=== PATIENT | female | born 1950 | race Two or more races ===

== ENCOUNTER 2016-10-09 14:05 | Outpatient (CLI) | payer BC, OTHER ==
[2016-10-09 14:51] LABS: BASOPHILS % (AUTO) 0.4 % (0.0-2.0); DIFF TOTAL % 100 %; EOSINOPHILS # (AUTO) 0.1 /CMM (0.0-0.7); EOSINOPHILS % (AUTO) 1.4 % (0.0-6.0); HEMATOCRIT 40 % (33-45); HEMOGLOBIN 13.2 g/dL (11.5-14.8); LYMPHOCYTES % (AUTO) 36.9 % (20.0-44.0); MEAN CORPUSCULAR HEMOGLOBIN 28 PG (26.0-33.0); MEAN CORPUSCULAR HGB CONC 33 g/dl (31.0-36.0); MEAN CORPUSCULAR VOLUME 85 fL (82-100); MONOCYTES # (AUTO) 0.4 /CMM (0.1-1.30); MONOCYTES % (AUTO) 5.2 % (2.0-12.0); NEUTROPHILS # (AUTO) 4.5 /CMM (1.8-8.9); NEUTROPHILS % (AUTO) 56.1 % (43.0-81.0); PLATELET COUNT (AUTO) 246 /CMM (150-450); RED BLOOD CELL COUNT(AUTO) 4.74 MIL/uL (4.0-5.2)
[2016-10-09 15:01] LABS: ALBUMIN 3.8 g/dL (3.4-5.0); BILIRUBIN,TOTAL 0.3 mg/dL (0.2-1.0); CREATININE 0.7 mg/dL (0.6-1.3); POTASSIUM 4.2 mmol/L (3.5-5.1); TOTAL PROTEIN, SERUM 7.5 g/dL (6.4-8.2)
[2016-10-09 15:40] LABS: KETONES,URINE NEGATIVE (NEGATIVE); LEUKOCYTE ESTERASE ,URINE 1+ (NEGATIVE); PH,URINE 7.5 (5.0-8.0)
[2016-10-09 16:00] LABS: ADD UA MICROSCOPIC YES
[2016-10-09 16:01] LABS: ADD URINE CULTURE YES
== END 2016-10-09 23:59 | disposition home or self-care (01) ==
LOC: LAB 14:05
PROVIDERS: ATTEND Family Medicine
DX: N39.0 Urinary tract infection, site not specified (principal)
CPT/HCPCS: 36415; 80053-TC; 81000-TC; 82150-TC; 83690-TC; 85025-TC; 87086-TC

== ENCOUNTER 2016-10-23 14:20 | Outpatient (CLI) | payer BC, OTHER ==
[2016-10-23 14:54] LABS: CALCIUM, SERUM 9.1 mg/dL (8.5-10.1); CREATININE 0.7 mg/dL (0.6-1.3); POTASSIUM 4.3 mmol/L (3.5-5.1)
== END 2016-10-23 23:59 | disposition home or self-care (01) ==
LOC: LAB 14:20
PROVIDERS: ATTEND Family Medicine
DX: R31.21 Asymptomatic microscopic hematuria (principal)
CPT/HCPCS: 36415; 80048-TC

== ENCOUNTER → 2016-10-25 | Outpatient (CLI) | payer BC, OTHER ==
[~2016-10-25] MED LIST: CT SWABBABLE VALVE TRANS SET 1 EA INFUS.SET MC ONE; IOHEXOL-300 100 ML VIAL IV ONE; IV NS 0.9% 250 ML IV ONE
[2016-10-25 11:31] LABS: CALCIUM, SERUM 8.9 mg/dL (8.5-10.1); CREATININE 0.7 mg/dL (0.6-1.3); POTASSIUM 4.5 mmol/L (3.5-5.1)
== END ==
LOC: CT 09:46
PROVIDERS: ATTEND Family Medicine
DX: R31.21 Asymptomatic microscopic hematuria (principal); K57.90 Diverticulosis of intestine, part unspecified, without perforation or abscess without bleeding
CPT/HCPCS: 36415; 74178; 80048; J7050; Q9967

== ENCOUNTER 2016-11-07 10:04 | Outpatient (CLI) | payer BC, OTHER ==
[2016-11-07 10:29] LABS: BASOPHILS # (AUTO) 0.1 /CMM (0.0-0.2); BASOPHILS % (AUTO) 0.3 % (0.0-2.0); HEMATOCRIT 39 % (33-45); HEMOGLOBIN 13.2 g/dL (11.5-14.8); LYMPHOCYTES # (AUTO) 1.1 /CMM (0.8-4.8); LYMPHOCYTES % (AUTO) 7.5 % (20.0-44.0); MEAN CORPUSCULAR HEMOGLOBIN 28 PG (26.0-33.0); MEAN CORPUSCULAR HGB CONC 34 g/dl (31.0-36.0); MEAN CORPUSCULAR VOLUME 84 fL (82-100); MONOCYTES # (AUTO) 0.5 /CMM (0.1-1.30); MONOCYTES % (AUTO) 3.3 % (2.0-12.0); NEUTROPHILS # (AUTO) 13.5 /CMM (1.8-8.9); NEUTROPHILS % (AUTO) 88.9 % (43.0-81.0); PLATELET COUNT (AUTO) 267 /CMM (150-450); RED BLOOD CELL COUNT(AUTO) 4.67 MIL/uL (4.0-5.2); WHITE BLOOD COUNT (AUTO) 15.2 K/uL (4.3-11.0)
[2016-11-07 10:36] LABS: APPEARANCE,URINE CLOUDY (CLEAR); BILIRUBIN,URINE NEGATIVE (NEGATIVE); BLOOD, URINE 3+ Ery/uL (NEGATIVE); COLOR,URINE YELLOW (YELLOW); KETONES,URINE NEGATIVE (NEGATIVE); LEUKOCYTE ESTERASE ,URINE 1+ (NEGATIVE); NITRITE, URINE NEGATIVE (NEGATIVE); PROTEIN,URINE NEGATIVE (NEGATIVE); UGLUCOSE NEGATIVE (NEGATIVE); UROBILINOGEN,URINE 0.2 EU/dL (0.2)
[2016-11-07 10:40] LABS: ADD URINE CULTURE YES; BACTERIA,URINE Few /HPF (None Seen); RBC,URINE 21-50 /HPF (0-2); SQUAMOUS EPITHELIAL CELL,UR Few /HPF (None Seen)
[2016-11-07 10:53] LABS: ALBUMIN 4.2 g/dL (3.4-5.0); BILIRUBIN,TOTAL 0.4 mg/dL (0.2-1.0); CALCIUM, SERUM 9.2 mg/dL (8.5-10.1); CREATININE 0.7 mg/dL (0.6-1.3); POTASSIUM 3.9 mmol/L (3.5-5.1)
[2016-11-07] MEDS ORDERED: IOHEXOL-300 100 ML VIAL IV ONE (11:05)
[2016-11-07] MEDS ORDERED: CT SWABBABLE VALVE TRANS SET 1 EA INFUS.SET MC ONE (11:05)
[2016-11-07] MEDS ORDERED: IV NS 0.9% 250 ML IV ONE (11:05)
[2016-11-07] MEDS ORDERED: METO-295 PO (12:17)
[2016-11-07] MEDS ORDERED: PANT40TA4 PO (12:17)
[2016-11-07] MEDS ORDERED: FENTANYL PF 100MCG/2ML AMPUL ONE (13:02)
[2016-11-07] MEDS ORDERED: MIDAZOLAM HCL 2 MG/2ML VIAL ONE (13:03)
[2016-11-07] MEDS ORDERED: ROCURONIUM BROMIDE 50 MG/5 ML ONE (13:03)
[2016-11-07] MEDS ORDERED: BUPIVACAINE 0.5 % PF 150 MG/30 ML VIAL ONE (14:57)
[2016-11-07] MEDS ORDERED: ANESTHESIA TRAY IN PYXIS 1 EA TRAY MC ONE (14:57)
[2016-11-08] MEDS ORDERED: CEPH-570 PO (12:44)
== END 2016-11-07 23:59 | disposition home or self-care (01) ==
LOC: LAB 10:04
PROVIDERS: ATTEND Family Medicine
DX: K35.80 Unspecified acute appendicitis (principal); K57.90 Diverticulosis of intestine, part unspecified, without perforation or abscess without bleeding; I70.0 Atherosclerosis of aorta
CPT/HCPCS: 36415; 74160; 80053; 81001; 82150; 83690; 85025; 87086; 88304; 88305; J1100; J1885; J2250; J2405; J2704; J2710; J3010; J3490 ×2; J7050; Q9967; 81000-TC

== ENCOUNTER 2016-11-07 12:05 | Inpatient (IN) | payer BC, OTHER ==
[~2016-11-07] VITALS: Ht 368.3 cm; Wt 68.5 kg
--- NOTE | 2016-11-07 12:10 | NUR ---
CALLED NURSING SUP. FOR [facility] BED
[2016-11-07] MEDS ORDERED: PANT40TA4 PO (12:17)
[2016-11-07] MEDS ORDERED: METO-295 PO (12:17)
--- NOTE | 2016-11-07 12:28 | NUR ---
CALLED (SURGEON [employer] OFFICER), TRANSFERRED CALL TO
[2016-11-07] MEDS ORDERED: ONDANSETRON HCL/PF 4 MG/2 ML VIAL IV ONE (12:30)
[2016-11-07] MEDS ORDERED: MORPHINE SULFATE INJ 2 MG/ML DISP.SYRIN IV ONE (12:30)
[2016-11-07] MEDS ORDERED: IV NS 0.9% 1,000 ML BAG IV ONE (12:30)
[2016-11-07] MEDS ORDERED: CEFTRIAXONE 1GM BAG (ER ONLY) 1 GM/50 ML PIGGYBACK IV ONE (12:30)
[2016-11-07] MEDS ORDERED: FLAGYL/NS RTU 500 MG/100 ML PIGGYBACK IV ONE (12:30)
[2016-11-07] MEDS ORDERED: MORPHINE SULFATE INJ 4 MG/ML DISP.SYRIN ONE (12:40)
[2016-11-07] MEDS ORDERED: MORPHINE SULFATE INJ 2 MG/ML DISP.SYRIN ONE (12:40)
[2016-11-07] MEDS ORDERED: METRONIDAZOLE 500MG/ NS 100ML 100 ML IV ONE (12:41)
[2016-11-07] MEDS ORDERED: IV NS 0.9% 1,000 ML ONE (12:41)
[2016-11-07] MEDS ORDERED: CEFTRIAXONE 1GM BAG (ER ONLY) 50 ML IV ONE (12:41)
[2016-11-07] MEDS ORDERED: ONDANSETRON HCL/PF 4 MG/2 ML VIAL ONE (12:41)
[2016-11-07] MEDS ORDERED: IV SET PRIMARY PUMP SET 1 EA INFUS.SET MC ONE ×2 (12:41→17:17)
--- NOTE | 2016-11-07 13:14 | NUR ---
TRANSFERED TO OR
[2016-11-07] MEDS ORDERED: IV D5/0.45 NACL 1,000 ML IV PRN (14:03)
[2016-11-07 14:23] LABS: AMYLASE 84 U/L (25-115); LIPASE 167 U/L (73-393)
[2016-11-07] MEDS ORDERED: MAG HYDROX/AL HYDROX/SIMETH 30 ML UDC PO PRN (14:30)
[2016-11-07] MEDS ORDERED: ACETAMINOPHEN 325 MG TABLET PO PRN (14:30)
[2016-11-07] MEDS ORDERED: Z GUARD REMEDY 2 OZ OINT TP PRN (14:30)
[2016-11-07] MEDS ORDERED: ZOLPIDEM TARTRATE 5 MG TABLET PO PRN (14:30)
[2016-11-07] MEDS ORDERED: ONDANSETRON HCL/PF 4 MG/2 ML VIAL IVP PRN (14:30)
[2016-11-07] MEDS ORDERED: MORPHINE SULFATE INJ 2 MG/ML DISP.SYRIN IV PRN ×2 (14:30→15:30)
[2016-11-07] MEDS ORDERED: MAGNESIUM HYDROXIDE 30 ML UDC PO PRN (14:30)
[2016-11-07] MEDS ORDERED: IV LR 1000 ML 1,000 ML ONE (14:46)
--- NOTE | 2016-11-07 15:30 | NUR ---
Med Surg Admitting note Received patient in room 111-2 via gurney from OR. Family at bed side. patient A+Ox3, drowsy after anesthesia, verbalizes needs, vital signs stable. Code status not ordered, patient and family requesting information. notified MD and social service agency director. breathing even and unlabored with NC 2l O2, to titrate down post-op. patient denies nausea, denies pain. noted incision site @ abdomen, photo in chart. BL AC 20g IV patent. receiving LR @ 100ml/hr. progressed to CLD. no edema noted. lung sounds clear. bowel sounds diminished but present. last BM this morning. denies discomfort or hesitancy with urination. discussed plan of care. call light in reach.
[2016-11-07 16:17] VITALS: BP 124/76
[2016-11-07] MEDS: IV LR 1000 ML 1,000 ML IV PRN (17:31)
--- NOTE | 2016-11-07 19:38 | NUR ---
closing notes left patient in stable condition. drowsy but easily arouses. VSS. no gas passed. bowel sounds hypoactive. no complaints of pain. call light in reach. family at bed side.
[2016-11-07 20:00] VITALS: BP 114/63
--- NOTE | 2016-11-07 20:00 | NUR ---
received pt from day shift, alert, follows commands, RA, sat well, BRP, no BM, passing gas, surgical incision observed, no bleeding, no s/s of infection noted, v/s stable, pt c/o pain, asked only for Tylenol, pt turns and repositions by herself.
[2016-11-08 04:00] VITALS: BP 97/49
--- NOTE | 2016-11-08 04:25 | NUR ---
pt is resting in the bed, v/s stable, no pain, no bleeding from surgical site noted, pt cleaned and changed.
[2016-11-08] MEDS: IV LR 1000 ML 1,000 ML IV PRN (04:33)
[2016-11-08 07:20] LABS: BASOPHILS % (AUTO) 0.2 % (0.0-2.0); HEMATOCRIT 32 % (33-45); HEMOGLOBIN 10.8 g/dL (11.5-14.8); LYMPHOCYTES # (AUTO) 1.7 /CMM (0.8-4.8); MEAN CORPUSCULAR HEMOGLOBIN 29 PG (26.0-33.0); MEAN CORPUSCULAR HGB CONC 34 g/dl (31.0-36.0); MEAN CORPUSCULAR VOLUME 86 fL (82-100); MONOCYTES # (AUTO) 0.7 /CMM (0.1-1.30); MONOCYTES % (AUTO) 5.3 % (2.0-12.0); NEUTROPHILS # (AUTO) 10.5 /CMM (1.8-8.9); NEUTROPHILS % (AUTO) 81.5 % (43.0-81.0); PLATELET COUNT (AUTO) 211 /CMM (150-450); RDW COEFFICIENT OF VARIATION 14.3 (11.5-15.0); RED BLOOD CELL COUNT(AUTO) 3.76 MIL/uL (4.0-5.2); WHITE BLOOD COUNT (AUTO) 12.9 K/uL (4.3-11.0)
[2016-11-08 07:28] LABS: INR 1.02 (0.87-1.13); PROTHROMBIN TIME 10.9 SECS (9.5-12.7)
[2016-11-08] MEDS ORDERED: PANTOPRAZOLE 40 MG TABLET.DR PO SCH (07:30)
--- NOTE | 2016-11-08 07:30 | NUR ---
RN INITIAL NOTES pt aox4, on room air, no sob, clear lungs, denies pain, iv fluids running, on clear liquid diet, on bed rest with bedside commode, vs stable, skin intact, small incisions on abdomen cleand ,dry, color wnl, abdomen soft, bowel sound present, cap refill <3 sec, pulses present, labs wnl, wbc 12.9, no fever, teaching done to pt, verbalized understanding, pt able to move in bed and fluid intake independently. kept clean and dry, safety measures implemented, call light within reach.
[2016-11-08 07:43] LABS: ALBUMIN 2.9 g/dL (3.4-5.0); BILIRUBIN,TOTAL 0.3 mg/dL (0.2-1.0); CALCIUM, SERUM 7.8 mg/dL (8.5-10.1); CREATININE 0.7 mg/dL (0.6-1.3); MAGNESIUM 1.7 mg/dL (1.8-2.4); PHOSPHORUS 3.2 mg/dL (2.5-4.9); POTASSIUM 3.7 mmol/L (3.5-5.1); TOTAL PROTEIN, SERUM 6.2 g/dL (6.4-8.2)
[2016-11-08 07:51] LABS: THYROID STIMULATING HORMONE 0.273 uIU/mL (0.358-3.74)
[2016-11-08 08:00] VITALS: BP 96/66
[2016-11-08] MEDS: HYDROCODONE/APAP 5/325MG 1 EACH TABLET PO PRN ×2 (08:34→14:05)
[2016-11-08 10:10] LABS: APPEARANCE,URINE CLEAR (CLEAR); BILIRUBIN,URINE NEGATIVE (NEGATIVE); BLOOD, URINE TRACE-INTA Ery/uL (NEGATIVE); COLOR,URINE YELLOW (YELLOW); KETONES,URINE NEGATIVE (NEGATIVE); LEUKOCYTE ESTERASE ,URINE TRACE (NEGATIVE); NITRITE, URINE NEGATIVE (NEGATIVE); PROTEIN,URINE NEGATIVE (NEGATIVE); UGLUCOSE NEGATIVE (NEGATIVE); UROBILINOGEN,URINE 0.2 EU/dL (0.2)
[2016-11-08 10:30] LABS: ADD URINE CULTURE NO; BACTERIA,URINE Few /HPF (None Seen)
[2016-11-08] MEDS ORDERED: SECONDARY IV SET 1 EA INFUS.SET MC ONE (12:22)
[2016-11-08] MEDS: Magnesium 1GM/D5W 100ML PREMIX 100 ML IV SCH ×2 (12:31→14:04)
[2016-11-08] MEDS ORDERED: CEPH-570 PO (12:44)
[2016-11-08] MEDS ORDERED: PNEUMOCOCCAL 23-VAL P-SAC VAC 0.5 ML VIAL SQ ONE (15:30)
--- NOTE | 2016-11-08 16:05 | NUR ---
RN NOTE PT DISCHARGED HOME WITH AND SON VIA OWN TRANSPORTATION IN STABLE CONDITION, VS STABLE, DENIES PAIN, PT AMBULATES, DISCHARGE INSTRUCTIONS PROVIDED, EXIT CARE DONE, PNEUMONIA VACCINE ADMINISTERED PRIOR DISCHARGE, ID BAND REMOVED, IV LINES REMOVED. BELONGINGS LIST SIGNED, BELONGINGS GIVEN TO PT. WALL COVERING INSTALLER HELPED WITH WHEELCHAIR TRANSFER TO THE CAR.
== END 2016-11-08 16:20 | disposition home or self-care (01) | DRG 343 ==
LOC: ER 12:06 → MEDSG1 13:04
PROVIDERS: ADMIT Internal Medicine; ATTEND Internal Medicine
PROC: 0DTJ4ZZ Resection of Appendix, Percutaneous Endoscopic Approach (ICD-10-PCS; principal; 2016-11-07 13:00)
DX: K35.80 Unspecified acute appendicitis (principal); K29.70 Gastritis, unspecified, without bleeding; E78.5 Hyperlipidemia, unspecified; E55.9 Vitamin D deficiency, unspecified; E86.0 Dehydration; K21.9 Gastro-esophageal reflux disease without esophagitis; K57.90 Diverticulosis of intestine, part unspecified, without perforation or abscess without bleeding
CPT/HCPCS: 36415; 71010-TC; 80053-TC; 80061-TC; 81000-TC; 82150-TC; 82746; 83540-TC; 83605-TC; 83690-TC; 83735-TC; 84100-TC; 84443-TC; 85025-TC; 85730-TC; 86850-TC; 87040-TC; 87081-TC; 87086-TC; 90732; 93307-TC; A4606; J0696; J2270; J2405; J3475; J3490; J7030; J7120; Z7610

== ENCOUNTER 2016-12-20 11:19 | Outpatient (CLI) | payer BC, OTHER ==
[~2016-12-20 11:19] MED LIST changes: +CEPH-570 PO; -CT SWABBABLE VALVE TRANS SET 1 EA INFUS.SET MC ONE; -IOHEXOL-300 100 ML VIAL IV ONE; -IV NS 0.9% 250 ML IV ONE; +METO-295 PO; +PANT40TA4 PO
[2016-12-20 12:15] LABS: ALBUMIN 3.8 g/dL (3.4-5.0); BILIRUBIN,TOTAL 0.3 mg/dL (0.2-1.0); CALCIUM, SERUM 8.9 mg/dL (8.5-10.1); CREATININE 0.7 mg/dL (0.6-1.3); TOTAL PROTEIN, SERUM 7.7 g/dL (6.4-8.2)
[2016-12-20 12:30] LABS: BASOPHILS % (AUTO) 0.3 % (0.0-2.0); EOSINOPHILS # (AUTO) 0.1 /CMM (0.0-0.7); EOSINOPHILS % (AUTO) 1.4 % (0.0-6.0); HEMATOCRIT 38 % (33-45); HEMOGLOBIN 12.9 g/dL (11.5-14.8); LYMPHOCYTES # (AUTO) 2.3 /CMM (0.8-4.8); LYMPHOCYTES % (AUTO) 36.3 % (20.0-44.0); MEAN CORPUSCULAR HEMOGLOBIN 29 PG (26.0-33.0); MEAN CORPUSCULAR HGB CONC 34 g/dl (31.0-36.0); MEAN CORPUSCULAR VOLUME 85 fL (82-100); MONOCYTES # (AUTO) 0.4 /CMM (0.1-1.30); MONOCYTES % (AUTO) 6.6 % (2.0-12.0); NEUTROPHILS # (AUTO) 3.5 /CMM (1.8-8.9); NEUTROPHILS % (AUTO) 55.4 % (43.0-81.0); PLATELET COUNT (AUTO) 250 /CMM (150-450); RDW COEFFICIENT OF VARIATION 13.5 (11.5-15.0); RED BLOOD CELL COUNT(AUTO) 4.52 MIL/uL (4.0-5.2); WHITE BLOOD COUNT (AUTO) 6.3 K/uL (4.3-11.0)
[2016-12-20 13:01] LABS: INR 0.97 (0.87-1.13); PROTHROMBIN TIME 10.4 SECS (9.5-12.7)
== END 2016-12-20 23:59 | disposition home or self-care (01) ==
LOC: LAB 11:19
PROVIDERS: ATTEND Family Medicine
DX: Z01.818 Encounter for other preprocedural examination (principal); N39.0 Urinary tract infection, site not specified
CPT/HCPCS: 36415; 80053-TC; 85025-TC; 85730-TC; 87086-TC

== ENCOUNTER 2017-01-14 12:04 | Outpatient (CLI) | payer BC | END 2017-01-14 23:59 | disposition home or self-care (01) | LOC: LAB 12:04 | PROVIDERS: ATTEND Family Medicine | DX: Z11.59 Encounter for screening for other viral diseases (principal); Z00.01 Encounter for general adult medical examination with abnormal findings; N39.0 Urinary tract infection, site not specified; E55.9 Vitamin D deficiency, unspecified | CPT/HCPCS: 87086-TC ==

== ENCOUNTER 2017-01-17 10:43 | Outpatient (CLI) | payer BC ==
[2017-01-17 11:38] LABS: CHOLESTEROL 236 mg/dL (<200); HDL CHOLESTEROL 42 mg/dL (40-60); LDL 111 mg/dL (0-99); TRIGLYCERIDES 248 mg/dL (30-150)
== END 2017-01-17 23:59 | disposition home or self-care (01) ==
LOC: CARD 10:43
PROVIDERS: ATTEND Family Medicine
DX: I34.0 Nonrheumatic mitral (valve) insufficiency (principal); E55.9 Vitamin D deficiency, unspecified; E78.5 Hyperlipidemia, unspecified; E78.00 Pure hypercholesterolemia, unspecified; E03.9 Hypothyroidism, unspecified
CPT/HCPCS: 36415; 80061-TC; 82306; 86803; 87086-TC; 93307-TC

== ENCOUNTER 2017-01-22 09:02 | Outpatient (CLI) | payer BC ==
[2017-01-22 09:51] LABS: INR 0.95 (0.87-1.13); PROTHROMBIN TIME 10.1 SECS (9.5-12.7)
== END 2017-01-22 23:59 | disposition home or self-care (01) ==
LOC: LAB 09:02
PROVIDERS: ATTEND Family Medicine
DX: Z01.818 Encounter for other preprocedural examination (principal); R31.21 Asymptomatic microscopic hematuria
CPT/HCPCS: 36415; 71020-TC; 76770-TC; 85730-TC; 87086-TC

== ENCOUNTER 2017-02-19 15:11 | Outpatient (CLI) | payer BC ==
[2017-02-19 16:23] LABS: CREATININE 0.6 mg/dL (0.6-1.3)
== END 2017-02-19 23:59 | disposition home or self-care (01) ==
LOC: LAB 15:11
PROVIDERS: ATTEND Family Medicine
DX: N20.0 Calculus of kidney (principal)
CPT/HCPCS: 36415; 82565-TC; 84520-TC

== ENCOUNTER 2017-02-20 08:31 | Outpatient (CLI) | payer BC ==
[2017-02-20] MEDS ORDERED: IOHEXOL-300 100 ML VIAL IV ONE (08:53)
[2017-02-20] MEDS ORDERED: CT SWABBABLE VALVE TRANS SET 1 EA INFUS.SET MC ONE (08:53)
[2017-02-20] MEDS ORDERED: IV NS 0.9% 250 ML IV ONE (08:53)
== END 2017-02-20 23:59 | disposition home or self-care (01) ==
LOC: CT 08:31
PROVIDERS: ATTEND Family Medicine
DX: N20.0 Calculus of kidney (principal); K57.30 Diverticulosis of large intestine without perforation or abscess without bleeding; I70.0 Atherosclerosis of aorta; I87.8 Other specified disorders of veins; M47.896 Other spondylosis, lumbar region; K55.1 Chronic vascular disorders of intestine
CPT/HCPCS: 74178; J7050; Q9967